=== PATIENT | female | born 1990 | race Caucasian/White ===

== ENCOUNTER 2018-07-11 16:04 | Emergency (ER) | payer MEDICAID ==
[2018-07-11 16:09] VITALS: BP 113/66
[2018-07-11] MEDS ORDERED: IBUPROFEN PO ONE (19:26)
--- NOTE | 2018-07-11 19:55 | Emergency Department Report ---
ED ENT HPI - General Chief complaint: Sore Throat Stated complaint: EAR/THROAT PAIN Time Seen by Provider: 07/11/18 19:25 Source: patient Mode of arrival: Ambulatory Limitations: No Limitations - History of Present Illness Initial comments: Patient is a 27-year-old female who presents for right ear and throat pain patient states nocturnal fever to urinate is 5/10 with sinus pressure symptoms are exacerbated by movement and position symptoms are relieved temporarily by ibuprofen patient states symptoms returned as soon as the ibuprofen wears off there is no fever at this time patient is tolerating by mouth intake MD complaint: sore throat, ear pain Onset/Timin -: days(s) Location: R ear, throat Severity: moderate Severity scale (0 -10): 5 Quality: aching Consistency: constant Improves with: NSAID, rest Worsens with: position, movement Associated Symptoms: fever, sore throat, tinnitus - Related Data Previous Rx's Medication Instructions Recorded Last Taken Type Amoxicillin/K Clav Tab [Augmentin 1 tab PO BID 10 Days #20 tab 07/11/18 Unknown Rx 875MG TAB] Benzocaine/Mentho [Cepacol X 1 each MM Q2H PRN #3 packet 07/11/18 Unknown Rx Strength] Ibuprofen 800 mg PO TID PRN #30 tablet 07/11/18 Unknown Rx Allergies Allergy/AdvReac Type Severity Reaction Status Date / Time No Known Allergies Allergy Unverified 07/11/18 16:05 ED Dental HPI - General Chief complaint: Sore Throat Stated complaint: EAR/THROAT PAIN Time Seen by Provider: 07/11/18 19:25 Source: patient Mode of arrival: Ambulatory Limitations: No Limitations - Related Data Previous Rx's Medication Instructions Recorded Last Taken Type Amoxicillin/K Clav Tab [Augmentin 1 tab PO BID 10 Days #20 tab 07/11/18 Unknown Rx 875MG TAB] Benzocaine/Mentho [Cepacol X 1 each MM Q2H PRN #3 packet 07/11/18 Unknown Rx Strength] Ibuprofen 800 mg PO TID PRN #30 tablet 07/11/18 Unknown Rx Allergies Allergy/AdvReac Type Severity Reaction Status Date / Time No Known Allergies Allergy Unverified 07/11/18 16:05 ED Review of Systems ROS: Stated complaint: EAR/THROAT PAIN Other details as noted in HPI Constitutional: fever. denies: chills Eyes: denies: eye pain, eye discharge, vision change ENT: ear pain, throat pain, congestion Respiratory: denies: cough, shortness of breath, wheezing Cardiovascular: denies: chest pain, palpitations Endocrine: no symptoms reported Gastrointestinal: denies: abdominal pain, nausea, vomiting, diarrhea Genitourinary: denies: urgency, dysuria, discharge Musculoskeletal: denies: back pain, joint swelling, arthralgia Skin: denies: rash, lesions Neurological: denies: headache, weakness, paresthesias Psychiatric: denies: anxiety, depression Hematological/Lymphatic: denies: easy bleeding, easy bruising ED Past Medical Hx - Past Medical History Previous Medical History?: No - Surgical History Past Surgical History?: No - Social History Smoking Status: Never Smoker Substance Use Type: None - Medications Home Medications: Home Medications Medication Instructions Recorded Confirmed Last Taken Type Amoxicillin/K Clav Tab [Augmentin 1 tab PO BID 10 Days #20 tab 07/11/18 Unknown Rx 875MG TAB] Benzocaine/Mentho [Cepacol X 1 each MM Q2H PRN #3 packet 07/11/18 Unknown Rx Strength] Ibuprofen 800 mg PO TID PRN #30 tablet 07/11/18 Unknown Rx ED Physical Exam - General Limitations: No Limitations General appearance: alert, in no apparent distress - Head Head exam: Present: atraumatic, normocephalic - Eye Eye exam: Present: normal appearance, PERRL, EOMI Pupils: Present: normal accommodation - ENT ENT exam: Present: mucous membranes moist - Expanded ENT Exam Expanded Ear exam: Present: normal external inspection TM/Canal exam: Erythema: Right TM, Canal Tenderness: Right TM Mouth exam: Absent: trismus Throat exam: Positive: tonsillar erythema, tonsillomegaly. Negative: tonsillar exudate, R peritonsillar mass, L peritonsillar mass, other (uvula midline no lesion no exudate no stridor ) - Neck Neck exam: Present: normal inspection, full ROM, lymphadenopathy (anteiro cervical lymph). Absent: tenderness, meningismus, thyromegaly - Respiratory Respiratory exam: Present: normal lung sounds bilaterally. Absent: respiratory distress, rhonchi, stridor, chest wall tenderness - Cardiovascular Cardiovascular Exam: Present: regular rate, normal rhythm, normal heart sounds. Absent: systolic murmur, diastolic murmur, rubs, gallop - GI/Abdominal GI/Abdominal exam: Present: soft, normal bowel sounds. Absent: tenderness, bruit, hernia - Extremities Exam Extremities exam: Present: normal inspection - Back Exam Back exam: Present: normal inspection, full ROM. Absent: tenderness, rash noted - Neurological Exam Neurological exam: Present: alert, oriented X3, CN II-XII intact, normal gait, reflexes normal - Psychiatric Psychiatric exam: Present: normal affect, normal mood - Skin Skin exam: Present: warm, dry, intact, normal color. Absent: rash ED Course Vital Signs 07/11/18 07/11/18 16:07 19:38 Temperature 98.3 F Pulse Rate 98 H Respiratory 18 16 Rate Blood Pressure 113/66 O2 Sat by Pulse 100 Oximetry ED Medical Decision Making - Medical Decision Making this is AOM with URI, plan, amoxicillin , ibuprofen, cepachol follow up with pcp in 2-3 days pt given referral to [facility] will follow up in 2-3 days pt verbalized agreement and understanding same, pt dc'd to home in stable condition at this time. Critical care attestation.: If time is entered above; I have spent that time in minutes in the direct care of this critically ill patient, excluding procedure time. ED Disposition Clinical Impression: URI, acute AOM (acute otitis media) Qualifiers: Otitis media type: serous Laterality: right Recurrence: not specified as recurrent Qualified Code(s): H65.01 - Acute serous otitis media, right ear Disposition: DC-01 TO HOME OR SELFCARE Is pt being admited?: No Does the pt Need Aspirin: No Condition: Stable Instructions: Otitis Media (ED), Upper Respiratory Infection (ED) Prescriptions: Amoxicillin/K Clav Tab [Augmentin 875MG TAB] 1 tab PO BID 10 Days #20 tab Benzocaine/Mentho [Cepacol X Strength] 1 each MM Q2H PRN #3 packet PRN Reason: Throat Pain Ibuprofen 800 mg PO TID PRN #30 tablet PRN Reason: pain fever Referrals: ELIJAH MOSQUEDA CNP [Other] - 3-5 Days Forms: Work/School Release Form(ED) Time of Disposition: 20:02
== END 2018-07-11 20:10 | disposition home or self-care (01) ==
LOC: ED 16:04
DX: J06.9 Acute upper respiratory infection, unspecified (principal); H65.01 Acute serous otitis media, right ear
CPT/HCPCS: 99282